=== PATIENT | male | born 1990 | race Caucasian/White ===

== ENCOUNTER 2019-04-30 09:36 | Emergency (ER) | payer BC, OTHER ==
[~2019-04-30] VITALS: Ht 193 cm; Wt 118.0 kg
--- OUTSIDE RECORDS SUMMARY | 2019-04-30 09:53 | XMS REPORT | Continuity of Care Document ---
Demographics Preferred Language Unknown Marital Status Unknown Sabianist Affiliation Unknown Race Unknown Ethnic Group Unknown Author Organization Unknown Address Unknown Phone Unavailable Allergies There is no data. Medications Medication Packaging Start Date St op Date Route Dosage Sig TRIAMCINOLONE ACETONIDE 09/26/2018 External 80 T WICE DAILY MEDROL 9 ORAL 1 as direc mar BACTRIM DS 09/26 ORAL 20 twice da tammy CLINDAMYCIN HCL 09/29/2018 ORAL 40 4 ti mes a day Problems There is no data. Procedures There is no data. Results There is no data. Encounters ACCT No. Visit Date/Time Discharge Status Pt. Type Provider Facility Loc./Unit Complaint [id number] 09/26/2018 09:46:10 Document Registration
--- NOTE | 2019-04-30 10:48 | ED Lower Extremity ---
General Chief Complaint: Lower Extremity Stated Complaint: KNEE PAIN Nursing Triage Note: PT CO OF L KNEE PAIN FROM INJURY APPROX 10YEARS AGO AND RECENTLY HAS GOTTEN WORSE 6 MONTHS AGO. HURTS WHEN WALKS /10 Nursing Sepsis Screen: No Definite Risk Source: patient Exam Limitations: no limitations History of Present Illness Date Seen by Provider: Apr 30, 2019 Time Seen by Provider: 10:33 Initial Comments Here with complaint of left knee pain that has been intermittent over some time but worse today. Reports that he played Frisbee golf yesterday for about 10 hours and now the left knee is worse as well as left great toe pain. Sometimes he'll have right great toe pain and right knee pain as well as bilateral elbow pain. He is worried about arthritis. Did have an injury on that knee about 10 years ago and is concerned more about the left knee. 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 Denies other specific injury or concerns. 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 He has no local doctor. Onset: yesterday Severity: moderate Pain/Injury Location: left knee Method of Injury: unknown, sports injury Modifying Factors: Worse With Movement; Improves With Rest Allergies and Home Medications Allergies Coded Allergies: No Known Drug Allergies (Unverified , 04/30/19) Home Medications No Active Prescriptions or Reported Meds Patient Home Medication List Home Medication List Reviewed: Yes Review of Systems Constitutional: see HPI; No chills, No fever Respiratory: no symptoms reported Cardiovascular: no symptoms reported Musculoskeletal: see HPI, joint pain, joint swelling Skin: no symptoms reported Past Tblxnlv-Malxtm-Pryphn Hx Past Med/Social Hx: Reviewed Nursing Past Med/Soc Hx Patient Social History Alcohol Use: Occasionally Uses Number of Drinks Today: 0 Recreational Drug Use: No Smoking Status: Current Everyday Smoker Type Used: Cigarettes Recent Foreign Travel: No Contact w/Someone Who Travel: No Recent Infectious Disease Expo: No Recent Hopitalizations: No Physical Abuse: No Sexual Abuse: No Seasonal Allergies Seasonal Allergies: No Past Medical History Surgeries: No Respiratory: No Cardiac: No Neurological: No Genitourinary: No Gastrointestinal: No Musculoskeletal: No Endocrine: No HEENT: No Cancer: No Psychosocial: No Integumentary: No Blood Disorders: No Family Medical History Reviewed Nursing Family Hx Physical Exam Vital Signs Vital Signs - First Documented 04/30/19 09:45 Temp 36.7 Pulse 79 Resp 18 B/P (MAP) 134/83 (100) Pulse Ox 99 Capillary Refill : Less Than 3 Seconds Height, Weight, BMI Height: '" Weight: lbs. oz. kg; 31.00 BMI Method: General Appearance: WD/WN, no apparent distress Knees: bilateral knee non-tender, bilateral knee normal range of motion, bilateral knee other (mild lateral laxity bilateral. Negative drawer bilateral. No obvious effusion to either knee.) Progress/Results/Core Measures Results/Orders My Orders Orders - RITA BETHEA MD Knee, Left, 3 Views (04/30/19 10:44) Vital Signs/I&O 04/30/19 09:45 Temp 36.7 Pulse 79 Resp 18 B/P (MAP) 134/83 (100) Pulse Ox 99 Blood Pressure Mean: 100 Progress Progress Note : Progress Note Seen and evaluated. X-ray left knee. Declined pain medicine. Monitor patient. 1129: X-ray reviewed. Discussed with patient. Discharged home with return precautions. Patient verbalize understanding instructions and agreement with plan. Diagnostic Imaging Diagonstic Imaging: Xray Plain Films/CT/US/NM/MRI: chest Comments [facility], [place] NAME: ALECIAAP Suerndra [facility] REC#: [id number] PT STATUS: REG ER : 1990 PHYSICIAN: RITA BETHEA MD ADMIT DATE: 04/30/19/ER Draft Date of Exam:04/30/19 KNEE, LEFT, 3 VIEWS INDICATION: Left knee pain. TECHNIQUE: AP, oblique, and lateral views of the left knee were obtained. FINDINGS: No acute fracture or dislocation is identified. No abnormal lytic or sclerotic focus is seen. There is no radiopaque foreign body. IMPRESSION: No acute abnormality. Dictated on workstation # [id number] Dict: 04/30/19 1100 Trans: 04/30/19 1103 JM [id number] Interpreted by: TANK ESCALONA MD Electronically signed by: Departure Impression Primary Impression: Unspecified internal derangement of left knee Disposition: 01 HOME, SELF-CARE Condition: Stable Departure-Patient Inst. Decision time for Depature: 10:48 Referrals: NO,LOCAL PHYSICIAN (PCP) Primary Care Physician ANANDA VIERA MD, MICHAEL P MD Patient Instructions: Internal Derangement of the Knee (DC) Add. Discharge Instructions: All discharge instructions reviewed with patient and/or family. Voiced understanding. You may take ibuprofen 600 mg every 8 hours as needed for pain or swelling. You may also take Tylenol/acetaminophen 1000 mg every 8 hours as needed for pain. You may use ice packs to area of concern to reduce swelling. You should change the insoles in your boots to the best padding and best insole that you can find to decrease the jarring on your knees. Return for worse pain, swelling, weakness, numbness, difficulty walking or other concerns as needed. Follow-up with the orthopedist listed or of your choosing for recheck and further evaluation. Scripts No Active Prescriptions or Reported Meds Work/School Note: Local Medical Staff Listing RITA BETHEA MD Apr 30, 2019 10:48
--- NOTE | 2019-04-30 11:03 | Diagnostic Imaging Report ---
INDICATION: Left knee pain. TECHNIQUE: AP, oblique, and lateral views of the left knee were obtained. FINDINGS: No acute fracture or dislocation is identified. No abnormal lytic or sclerotic focus is seen. There is no radiopaque foreign body. IMPRESSION: No acute abnormality. Dictated by: Dictated on workstation # [id number]
[2019-04-30 11:30] VITALS: BP 134/83
== END 2019-04-30 11:29 | disposition home or self-care (01) ==
LOC: ER 09:38
DX: M23.92 Unspecified internal derangement of left knee (principal); F17.210 Nicotine dependence, cigarettes, uncomplicated
CPT/HCPCS: 73562